=== PATIENT | male | born 1965 | race Caucasian/White ===

== ENCOUNTER 2020-01-25 11:44 | Inpatient (IN) | payer OTHER, MEDICAID, SELFPAY ==
[2020-01-25] VITALS (12 sets, daily range): BP systolic 128–165; BP diastolic 66–99; PULSE 98–106; RESP 10–40; TEMP 36.2–37.1; O2SAT 87–99; BMI 24.1
--- NOTE | 2020-01-25 11:52 | ED_ITS ---
HPI - General Adult General Chief complaint: Toxicology Problem Stated complaint: Ruby Miguel OD Time Seen by Provider: 01/25/20 11:44 Source: EMS Mode of arrival: EMS Limitations: altered mental status History of Present Illness HPI narrative: 54-year-old male initially was a call out for EMS for CPR in progress for a male that was unresponsive. The report was that the patient was staying at 1 of the local hotels. Was found by 1 of the hotel worker's being on the ground. Police arrived 1st. Found him to not be breathing. I gave 4 mg of intranasal Narcan and apparently a very short course of CPR was initiated. EMS arrived. The patient was breathing shallow and somewhat blue in color however this did seem to be an improvement from when the police arrived. He received 1 additional mg intramuscular by EMS and a 2nd 1 mg dose of Narcan IV by EMS. Patient arrived breathing on his own. Arousable. He denied any medications. He did not know where he was. He did not know the year. He stated that he did take heroin and cocaine. Unsure when these ingestions occurred. There also reports that the patient had notes next to him that said ?DNR? and other comments about the fact that he ?did this ?willingly and also left a name and phone number for individuals to call. Related Data Home Medications Medication Instructions Recorded Confirmed No Known Home Medications 01/25/20 01/25/20 Allergies Allergy/AdvReac Type Severity Reaction Status Date / Time No Known Drug Allergies Allergy Verified 01/25/20 12:04 Review of Systems Review of Systems ROS Unobtainable: Unobtainable due to medical condition Patient History Medical History Patient denies medical problems (Acute) Social History lives independently: Yes Exam Initial Vital Signs Initial Vital Signs: Vital Signs Temperature 98.1 F 01/25/20 11:44 Pulse Rate 103 H 01/25/20 11:44 Respiratory Rate 16 01/25/20 11:44 Blood Pressure 157/99 H 01/25/20 11:44 Pulse Oximetry 87 L 01/25/20 11:44 Const General: disheveled Limitations: altered mental status HENMT Head: normal to inspection and normocephalic Mouth: oral mucosae normal Eyes Pupils: pupil size bilaterally 2 Resp Effort & Inspection: not labored, no retractions and other (Breathing shallow) Auscultation: clear to auscultation bilaterally Cardio Rate: tachycardic Rhythm: regular rhythm Pulses: radial pulses present GI Inspection: non-distended Palpation: soft Skin Lesions: no lesions Rashes: no rashes Neuro General: moves all extremities Extrem General: capillary refill normal Psych Appearance: disheveled Scores GCS [place] coma scale eye opening: To sound [place] coma scale verbal response: Confused [place] coma scale motor response: Obey commands Elizabeth coma scale total score: 13 Course Orders Ordered: ED Orders 01/25/20 11:47 Urine Drug Screen, Rapid Stat 01/25/20 12:05 Acetaminophen Stat Complete Blood Count AUTO DIFF Stat Comprehensive Metabolic Panel Stat Ethanol (ETOH) Stat Lactate (Lactic Acid) Stat Lipase Stat Magnesium Stat Partial Thromboplastin Time Stat Phosphorous Stat Prothrombin Time INR Stat Salicylate Stat Naloxone HCl 2 mg/ Sodium (Chloride) 500 mls @ 62.5 mls/hr IV TITRATE WES; Protocol Last Titration: 01/25/20 12:09 Dose: 2 mg/hr, 500 mls/hr Documented by: Admin: 01/25/20 12:05 Dose: 0.25 mg/hr, 62.5 mls/hr Documented by: SANDRA Sodium Chloride (Normal Saline 0.9%) 1,000 mls @ 125 mls/hr IV CONT WES Last Admin: 01/25/20 12:05 Dose: 125 mls/hr Documented by: SANDRA Vital Signs Vital signs: Vital Signs - 8 hr 01/25/20 11:44 01/25/20 11:45 01/25/20 12:05 Temperature 98.1 F Pulse Rate 103 H 106 H 104 H Respiratory Rate 16 20 40 H Blood Pressure 157/99 H Blood Pressure [Right Arm] 156/93 H 148/77 H Pulse Oximetry 87 L 90 L 95 01/25/20 12:55 01/25/20 13:00 Temperature Pulse Rate 99 H Respiratory Rate 11 L Blood Pressure Blood Pressure [Right Arm] 128/66 Pulse Oximetry 99 96 Medical Decision Making Lab Data Lab results reviewed: Yes I reviewed the patient's lab results. Result diagrams: 01/25/20 12:05 01/25/20 12:05 Labs: Lab Results 01/25/20 01/25/20 01/25/20 Range/Units 12:05 12:05 12:05 WBC 11.8 H (4.5-11.0) X10^3/uL RBC 4.78 (4.5-5.9) X10^6/uL Hgb 15.5 (13.5-17.5) g/dL Hct 45.6 (41-53) % MCV 95.3 (80-100) fL MCH 32.5 (26-34) PG MCHC 34.1 (30-36) % RDW 12.3 (11.6-14.8) % Plt Count 254 (150-400) X10^3/uL Neut % (Auto) 85.6 H (50-75) % Lymph % (Auto) 6.5 L (25-40) % [place] % (Auto) 7.2 (3-14) % Eos % (Auto) 0.5 L (2-4) % Baso % (Auto) 0.2 (0-2) % Neut # (Auto) 07537 H (0285-4689) /uL Lymph # (Auto) 800 L (5430-2134) /uL [place] # (Auto) 800 (0-900) /uL Eos # (Auto) 100 (0-450) /uL Baso # (Auto) 0 (0-100) /uL PT (10.1-12.7) SECONDS INR (0.9-1.3) APTT (26.4-36.2) SECONDS Sodium 136 L (137-145) mmol/L Potassium 3.7 (3.4-5.1) mmol/L Chloride 98 (98-107) mmol/L Carbon Dioxide 25 (22-32) mmol/L BUN 8 L (9-20) mg/dL Creatinine 1.11 (0.66-1.25) mg/dL Estimated GFR > 60.0 (>60) mL/min BUN/Creatinine Ratio 7.2 (6-22) Glucose 239 H (70-100) mg/dL Lactate (0.7-2.1) mmol/L Calcium 9.5 (8.4-10.2) mg/dL Phosphorus (2.5-4.5) mg/dL Magnesium (1.6-2.3) mg/dL Total Bilirubin 0.6 (0.2-1.3) mg/dL AST 72 H (17-59) IU/L ALT 42 (<50) IU/L Alkaline Phosphatase 123 (38-126) U/L Total Protein 8.2 (6.3-8.2) g/dL Albumin 4.4 (3.5-5.0) g/dL Globulin 3.8 (1.7-4.1) g/dL Albumin/Globulin Ratio 1.2 (1.0-2.8) Lipase 185 (23-300) U/L Salicylates 1.0 (<20) mg/dL Acetaminophen < 10 L (10-30) ug/mL Ethyl Alcohol < 10 ( - 10) mg/dL 01/25/20 01/25/20 01/25/20 Range/Units 12:05 12:05 12:05 WBC (4.5-11.0) X10^3/uL RBC (4.5-5.9) X10^6/uL Hgb (13.5-17.5) g/dL Hct (41-53) % MCV (80-100) fL MCH (26-34) PG MCHC (30-36) % RDW (11.6-14.8) % Plt Count (150-400) X10^3/uL Neut % (Auto) (50-75) % Lymph % (Auto) (25-40) % [place] % (Auto) (3-14) % Eos % (Auto) (2-4) % Baso % (Auto) (0-2) % Neut # (Auto) (6978-6165) /uL Lymph # (Auto) (7074-6541) /uL [place] # (Auto) (0-900) /uL Eos # (Auto) (0-450) /uL Baso # (Auto) (0-100) /uL PT 12.7 (10.1-12.7) SECONDS INR 1.1 (0.9-1.3) APTT 23 L (26.4-36.2) SECONDS Sodium (137-145) mmol/L Potassium (3.4-5.1) mmol/L Chloride (98-107) mmol/L Carbon Dioxide (22-32) mmol/L BUN (9-20) mg/dL Creatinine (0.66-1.25) mg/dL Estimated GFR (>60) mL/min BUN/Creatinine Ratio (6-22) Glucose (70-100) mg/dL Lactate 3.5 H (0.7-2.1) mmol/L Calcium (8.4-10.2) mg/dL Phosphorus 6.1 H (2.5-4.5) mg/dL Magnesium 2.0 (1.6-2.3) mg/dL Total Bilirubin (0.2-1.3) mg/dL AST (17-59) IU/L ALT (<50) IU/L Alkaline Phosphatase (38-126) U/L Total Protein (6.3-8.2) g/dL Albumin (3.5-5.0) g/dL Globulin (1.7-4.1) g/dL Albumin/Globulin Ratio (1.0-2.8) Lipase (23-300) U/L Salicylates (<20) mg/dL Acetaminophen (10-30) ug/mL Ethyl Alcohol ( - 10) mg/dL ECG Data Attestation: I personally reviewed and interpreted this ECG as follows: Prior ECG tracings: not available for review Interpretation: Sinus tachycardia Ventricular rate of 105 Normal axis Normal QRS QTC [address] T wave changes MDM Narrative Medical decision making narrative: No signs of trauma. Patient received a total 6 mg of Narcan prior to arrival. Shortly after arrival he became somnolent and did desat to the high 80s. He was placed on oxygen. He was arousable. Was started on a 2 milligram/hour Narcan drip. His QTC was prolonged to greater than 550. I do not have an old EKG to compare to. His magnesium was normal. Al cohol Tylenol aspirin all unremarkable. Discussed the case with poison Control who recommended continue with the Narcan drip. Protecting his airway. Treating with benzos if needed for the cocaine. Discussed the case with Dr. Robbins Internal Medicine who will admit for further evaluation and treatment. Discharge Plan Departure Patient Disposition: Admitted As Inpatient Clinical Impression: Heroin overdose Qualifiers: Encounter type: initial encounter Injury intent: undetermined intent Qualified Code(s): T40.1X4A - Poisoning by heroin, undetermined, initial encounter Cocaine overdose Qualifiers: Encounter type: initial encounter Injury intent: undetermined intent Qualified Code(s): T40.5X4A - Poisoning by cocaine, undetermined, initial encounter Admit Date/Time: 01/25/20 13:20 Admit Provider: Babita Robbins
[2020-01-25] MEDS: NALOXONE 2 MG in SODIUM CHLORIDE 0.9% 500 ML 62.5 ML IV (12:05)
[2020-01-25] MEDS: SODIUM CHLORIDE 0.9% 1,000 ML 125 ML IV (12:05)
[2020-01-25 12:22] LABS: INR 1.1 (0.9-1.3); Prothrombin Time 12.7 SECONDS (10.1-12.7)
[2020-01-25 12:25] LABS: PTT Partial Thromboplastin Tim 23 SECONDS (26.4-36.2)
--- NOTE | 2020-01-25 12:26 | PC.NURSE ---
PT currently requiring critical care monitoring. Unable to remove objects not in use. Pt w/ 1:1 observation.
[2020-01-25 12:32] LABS: Add Manual Diff / Slide Review NO; Basophils Absolute Auto 0 /uL (0-100); Basophils Percent Auto 0.2 % (0-2); Eosinophils Absolute Auto 100 /uL (0-450); Eosinophils Percent Auto 0.5 % (2-4); Hematocrit 45.6 % (41-53); Hemoglobin 15.5 g/dL (13.5-17.5); Lymphocytes Absolute Auto 800 /uL (1100-4500); Lymphocytes Percent Auto 6.5 % (25-40); Mean Corpuscular HGB Conc 34.1 % (30-36); Mean Corpuscular Hemoglobin 32.5 PG (26-34); Mean Corpuscular Volume 95.3 fL (80-100); Monocytes Absolute Auto 800 /uL (0-900); Monocytes Percent Auto 7.2 % (3-14); Neutrophils Absolute Auto 10100 /uL (1500-7000); Neutrophils Percent Auto 85.6 % (50-75); Platelet Count 254 X10^3/uL (150-400); Red Blood Cell Count 4.78 X10^6/uL (4.5-5.9); Red Cell Distribution Width 12.3 % (11.6-14.8); White Blood Cell Count 11.8 X10^3/uL (4.5-11.0)
[2020-01-25 12:33] LABS: Acetaminophen < 10 ug/mL (10-30); Alanine Aminotransferase 42 IU/L (<50); Albumin 4.4 g/dL (3.5-5.0); Albumin Globulin Ratio 1.2 (1.0-2.8); Alkaline Phosphatase 123 U/L (38-126); Aspartate Aminotransferase 72 IU/L (17-59); BUN Creatinine Ratio 7.2 (6-22); Bilirubin Total 0.6 mg/dL (0.2-1.3); Blood Urea Nitrogen 8 mg/dL (9-20); Calcium 9.5 mg/dL (8.4-10.2); Carbon Dioxide 25 mmol/L (22-32); Chloride 98 mmol/L (98-107); Estimated Glomerular Filt Rate > 60.0 mL/min (>60); Ethanol (ETOH) < 10 mg/dL; Globulin 3.8 g/dL (1.7-4.1); Glucose 239 mg/dL (70-100); HEMOLYSIS 25 (0-50); Lipase 185 U/L (23-300); Phosphorous 6.1 mg/dL (2.5-4.5); Potassium 3.7 mmol/L (3.4-5.1); Sodium 136 mmol/L (137-145); Total Protein 8.2 g/dL (6.3-8.2)
[2020-01-25 12:34] LABS: Lactate (Lactic Acid) 3.5 mmol/L (0.7-2.1)
[2020-01-25 14:17] LABS: Reflexed Lactate in 2 Hours Y
[2020-01-25] MEDS: SODIUM CHLORIDE 0.9% IV (14:34)
[2020-01-25] MEDS: NALOXONE IV (14:34)
[2020-01-25 14:55] LABS: Lactate 2HR (Lactic Acid Rflx) 1.4 mmol/L (0.7-2.1)
--- NOTE | 2020-01-25 15:37 | PC.NURSE ---
Admit Note Pt arrived via stretcher from ER at 1440. Moved self across from stretcher to bed. Drowsy but easily arousable, oriented x3. Belongings brought up from ER removed from pt's room. ST with prolonged QT. SpO2 96% on RA. End tidal CO2 placecd and reading 37. Oriented to room and to call light/bed/tv controls. Call light within reach. One to one observation in place.
[2020-01-25 16:57] LABS: Ur Creatinine Normal (Normal); Ur Specific Gravity Normal (Normal); Urine Tetrahydrocannabinol Negative (Negative); Urine pH Normal (Normal)
[2020-01-25 16:58] LABS: UR Morphine/Opiate cutoff 300 Positive (Negative); Urine Amphetamines Negative (Negative); Urine Barbiturates Negative (Negative); Urine Benzodiazepines Negative (Negative); Urine Cocaine Positive (Negative); Urine MDMA Negative (Negative); Urine Methadone Negative (Negative); Urine Methamphetamines Negative (Negative); Urine Oxycodone Negative (Negative); Urine Phencyclidine Negative (Negative); Urine Tricyclic Antidepressant Negative (Negative)
--- NOTE | 2020-01-25 17:27 | P.HP_ITS ---
History of Present Illness History of Present Illness Date Patient Seen: 01/25/20 Chief complaint: Ruby Miguel OD Narrative: Antony Davis is a 54-year-old male who does not routinely seek medical care who has a past medical history significant for untreated hypertension, hyperli pidemia, and prediabetes; polysubstance abuse including cocaine, alcohol, and tobacco who presented to the ED via EMS after being found unresponsive at local hotel after intentional suicide attempt with heroin and cocaine overdose. The patient is resting in bed is mildly somnolent but arousable. He reports he attempted to commit suicide due to ?done playing his game [life]. Per ER physician report, the patient was found down unresponsive at a local hotel by an employee. The patient was found to be not breathing and received Narcan 4 mg intranasal x1 and brief CPR performed by police. Once EMS arrived, the patient was found to have shallow breathing and a pulse and CPR was terminated. He received additional 2 mg of Narcan, 1 mg IV and 1 mg IM. The patient reportedly a note that was found lying next to him that stated he was a ?DNR? and that he did this willingly and a name and phone number of an individual to contact. The patient arrived to the ED breathing on his own, somnolent but arousable. He was started on a Narcan gtt. He reports history of untreated hypertension, hyperlipidemia and prediabetes. He denies any current medications. He reports that he uses cocaine frequently and drinks approximately 18 beers a day. He has no complaints and denies headache, chest pain, shortness of breath, abdominal pain, nausea, vomiting, fever, chills, dysuria, diarrhea constipation. He does endorse chronic ?smoker's cough.? He reports he is not suicidal currently. The patient was admitted inpatient for further treatment of heroin and cocaine overdose. Patient History Medical History (Updated 01/25/20 @ 18:00 by Babita Robbins DO) Alcohol dependence (Acute) Cocaine abuse (Acute) Hyperlipidemia (Acute) Hypertension (Acute) Prediabetes (Acute) Tobacco dependence (Acute) Surgical History (Updated 01/25/20 @ 17:29 by Babita Robbins DO) No pertinent past surgical history (Acute) Family & Social History Family History (Updated 01/25/20 @ 17:33 by Babita Robbins DO) Mother Alcoholic cirrhosis of liver Father Osteoarthritis Dementia Sister Unknown family medical history Social History: Prior Living Arrangements House lives independently Yes Safety & Behavioral: Feels Safe in Current Unwilling to Answer Environment Been Physically Hurt or Unwilling to Answer Threatened By a Person Suicide Plan Description No Plan Tobacco & Substance use: Tobacco type cigarettes Smoking Status Current every day smoker Smoking packs per day 1 alcohol intake current alcohol intake frequency 3 or more drinks per day Substance Use Type crack/cocaine,heroin,opiates Meds Home Medications and Allergies Home Medications Medication Instructions Recorded Confirmed Type No Known Home Medications 01/25/20 01/25/20 History Allergies Allergy/AdvReac Type Severity Reaction Status Date / Time No Known Drug Allergies Allergy Verified 01/25/20 12:04 Review of Systems Review of Systems Narrative: A 10 system comprehensive review of systems was conducted with the patient and found to be negative except as above in the History of Present Illness. Exam Vital Signs (past 8 hours): - 01/25/20 11:44 01/25/20 11:45 01/25/20 12:05 Temperature 98.1 F Pulse Rate 103 H 106 H 104 H Respiratory Rate 16 20 40 H Blood Pressure 157/99 H Blood Pressure [Right Arm] 156/93 H 148/77 H Pulse Oximetry 87 L 90 L 95 01/25/20 12:55 01/25/20 13:00 01/25/20 13:58 Temperature Pulse Rate 99 H 104 H Respiratory Rate 11 L 12 Blood Pressure Blood Pressure [Right Arm] 128/66 163/84 H Pulse Oximetry 99 96 96 01/25/20 14:45 01/25/20 15:43 Temperature 98.8 F 98.0 F Pulse Rate 101 H 98 H Respiratory Rate 13 15 Blood Pressure 143/79 H 141/83 H Blood Pressure [Right Arm] Pulse Oximetry 96 99 Oxygen Delivery Method Room Air Oxygen Flow Rate 1 Narrative Exam Narrative: General: Middle-aged gentleman lying in bed, somnolent but arousable, in no acute distress, slightly irritable. HEENT: Normocephalic, atraumatic. External ears without defect. Pupils equal, round, and reactive to light. Anicteric sclerae, moist conjunctivae, and no lid lag. Oropharynx free of erythema and cobble stoning with moist mucosa. Neck: Supple with full range of motion. No jugular venous distension. No lymphadenopathy or thyromegaly. Cardiovascular: Regular rhythm, mild tachycardia, without murmurs, rubs, or ga llops appreciated. Pulmonary: Clear to auscultation bilaterally without crackles, wheezes, or rhonchi. Normal respiratory effort with no use of accessory muscles. Abdomen: Soft, bowel sounds present, nontender, nondistended. No hepatosplenomegaly or masses appreciated. Extremities: No clubbing, cyanosis, or edema. Skin: Chronic maculopapular rash on forehead. Normal temperature, turgor, and texture; no other rash, ulcers, or subcutaneous nodules appreciated. Neurological: Cranial nerves grossly intact. Psychiatric: Irritable mood and affect. Alert and oriented to person, place, and time. Objective Labs Result Diagrams: 01/25/20 12:05 01/25/20 12:05 Labs: Laboratory Results - last 24 hr 01/25/20 01/25/20 01/25/20 12:05 12:05 12:05 WBC 11.8 H RBC 4.78 Hgb 15.5 Hct 45.6 MCV 95.3 MCH 32.5 MCHC 34.1 RDW 12.3 Plt Count 254 Neut % (Auto) 85.6 H Lymph % (Auto) 6.5 L [place] % (Auto) 7.2 Eos % (Auto) 0.5 L Baso % (Auto) 0.2 Neut # (Auto) 75694 H Lymph # (Auto) 800 L [place] # (Auto) 800 Eos # (Auto) 100 Baso # (Auto) 0 PT INR APTT Sodium 136 L Potassium 3.7 Chloride 98 Carbon Dioxide 25 BUN 8 L Creatinine 1.11 Estimated GFR > 60.0 BUN/Creatinine Ratio 7.2 Glucose 239 H Lactate Calcium 9.5 Phosphorus Magnesium Total Bilirubin 0.6 AST 72 H ALT 42 Alkaline Phosphatase 123 Total Protein 8.2 Albumin 4.4 Globulin 3.8 Albumin/Globulin Ratio 1.2 Lipase 185 Nasal Screen MRSA (PCR) Salicylates 1.0 U Opiates 300ng/mL cut Ur Oxycodone Screen Urine Methadone Screen Acetaminophen < 10 L Ur Barbiturates Screen U Tricyclic Antidepress Ur Phencyclidine Scrn Ur Amphetamines Screen U Methamphetamines Scrn Ur MDMA Scrn (Ecstasy) U Benzodiazepines Scrn Urine Cocaine Screen U Marijuana (THC) Screen Ethyl Alcohol < 10 01/25/20 01/25/20 01/25/20 12:05 12:05 12:05 WBC RBC Hgb Hct MCV MCH MCHC RDW Plt Count Neut % (Auto) Lymph % (Auto) [place] % (Auto) Eos % (Auto) Baso % (Auto) Neut # (Auto) Lymph # (Auto) [place] # (Auto) Eos # (Auto) Baso # (Auto) PT 12.7 INR 1.1 APTT 23 L Sodium Potassium Chloride Carbon Dioxide BUN Creatinine Estimated GFR BUN/Creatinine Ratio Glucose Lactate 3.5 H Calcium Phosphorus 6.1 H Magnesium 2.0 Total Bilirubin AST ALT Alkaline Phosphatase Total Protein Albumin Globulin Albumin/Globulin Ratio Lipase Nasal Screen MRSA (PCR) Salicylates U Opiates 300ng/mL cut Ur Oxycodone Screen Urine Methadone Screen Acetaminophen Ur Barbiturates Screen U Tricyclic Antidepress Ur Phencyclidine Scrn Ur Amphetamines Screen U Methamphetamines Scrn Ur MDMA Scrn (Ecstasy) U Benzodiazepines Scrn Urine Cocaine Screen U Marijuana (THC) Screen Ethyl Alcohol 01/25/20 01/25/20 01/25/20 14:37 14:44 16:49 WBC RBC Hgb Hct MCV MCH MCHC RDW Plt Count Neut % (Auto) Lymph % (Auto) [place] % (Auto) Eos % (Auto) Baso % (Auto) Neut # (Auto) Lymph # (Auto) [place] # (Auto) Eos # (Auto) Baso # (Auto) PT INR APTT Sodium Potassium Chloride Carbon Dioxide BUN Creatinine Estimated GFR BUN/Creatinine Ratio Glucose Lactate 1.4 Calcium Phosphorus Magnesium Total Bilirubin AST ALT Alkaline Phosphatase Total Protein Albumin Globulin Albumin/Globulin Ratio Lipase Nasal Screen MRSA (PCR) Negative for mrsa Salicylates U Opiates 300ng/mL cut Positive H Ur Oxycodone Screen Negative Urine Methadone Screen Negative Acetaminophen Ur Barbiturates Screen Negative U Tricyclic Antidepress Negative Ur Phencyclidine Scrn Negative Ur Amphetamines Screen Negative U Methamphetamines Scrn Negative Ur MDMA Scrn (Ecstasy) Negative U Benzodiazepines Scrn Negative Urine Cocaine Screen Positive H U Marijuana (THC) Screen Negative Ethyl Alcohol Assessment & Plan Assessment & Plan narrative: Antony Davis is a 54-year-old male who does not routinely seek medical care who has a past medical history significant for untreated hypertension, hyperlipidemia, and prediabetes; polysubstance abuse including cocaine, alcohol, and tobacco who presented to the ED via EMS after being found unresponsive at [facility] after intentional suicide attempt with heroin and cocaine overdose. 1. Intentional suicide attempt with heroin and cocaine overdose, present on admission. Active. -Patient reports suicide attempt with inhaled cocaine which he uses frequently and intranasal heroin which he reports was his first time use. Patient was found unresponsive by [facility] employee and received brief CPR by police and Narcan 6 mg total in the field (intranasal, IM and IV). -Continue to monitor neuro status frequently. -Continue IV fluids with normal saline at 100 mL/hr. -Continue supplemental oxygen as necessary to maintain oxygen saturations 88- 92%. Patient currently off oxygen. -Patient was started on Narcan gtt in ED and is currently at 1 mg/hr and will be slowly titrated off as tolerated. Continue end-tidal CO2 while on Narcan and patient is sedated/somnolent. Poison control was contacted by ED who recommended IV fluids and Narcan gtt. Recommended use of benzodiazepine cautiously and ONLY if needed for cocaine intoxication once narcan gtt discontinued. -Consulted POLICE ACADEMY PROGRAM COORDINATOR, pending. 2. Alcohol dependence, chronic, present on admission. Stable. -Patient does not appear to be in alcohol withdrawal. Patient denies history of alcohol draw, DTs or alcohol withdrawal seizure. Patient reports he consumes approximately 18 beers per day with last drink today. -EtOH level < 10. -Ordered CIWA assessment. Did not routinely order as needed benzodiazepines due to heroin overdose and potential for respiratory suppression and . -Started and continue multivitamin, folic acid 1 mg daily, and thiamine 100 mg daily. 3. Tobacco dependence, chronic, present on admission. Stable. -Ordered nicotine patch as needed for nicotine withdrawal. -Counseled patient extensively on smoking cessation. Patient reports chronic smoker's cough. -Ordered COVID 19 as patient will likely need to have a negative results for behavioral health treatment. 4. History of hypertension, untreated, chronic, present on admission. Stable. -Patient reports history of hypertension but does not take any antihypertensive and does not routinely see a physician. -Ordered labetalol 10 mg IV every 4 hours as needed for SBP > 180 mmHg is stained for 15 minutes and HR > 60 bpm. May need to consider starting antihypertensive the patient continues to be significantly hypertensive throughout hospitalization. 5. History of hyperlipidemia, untreated, chronic, present on admission. Stable. -patient reports history of hyperlipidemia but does not take any medications to treat hyperlipidemia. 6. History of prediabetes. -Hemoglobin A1c normal at 5.6%. Hyperglycemia on admission likely reactive. Code status: Full code DVT prophylaxis: SQ Heparin and SCDs Patient is admitted under inpatient status with expected length of stay greater than 2 midnights due to severity of presenting symptoms, risk of adverse event, and complexity of treatment plan.
[2020-01-25 18:27] LABS: Hemoglobin A1C% w Est Avg Glu 5.6 % (4.0-6.0)
[2020-01-25] MEDS: NICOTINE 21 MG PATCH TOP (18:47)
[2020-01-25] MEDS: HEPARIN 5,000 UNIT/ML VIAL 5000 UNIT SUBCUT (21:14)
[2020-01-25] MEDS: SODIUM CHLORIDE 0.9% 1,000 ML 100 ML IV (21:20)
--- NOTE | 2020-01-25 22:17 | PC.NURSE ---
Pt awake and alert during this shift, talking freely about his suicide attempt and the weeks preceeding. Material Preparation Worker consulted. VS stable, IV narcan titrated to off. ETCO2 35-44, O2Sats stable on 1L nasal O2. CIWA protocol initiated, last score 0. Seizure pads placed on bed and pt instructed to call for assistance before trying to get out of bed. bed alarm on. Cooperative with cares.
[2020-01-26 04:44] VITALS: BP 161/93; PULSE 105; RESP 19; TEMP 37.3; O2SAT 98
[2020-01-26 05:06] LABS: Add Manual Diff / Slide Review NO; Basophils Absolute Auto 0 /uL (0-100); Basophils Percent Auto 0.3 % (0-2); Eosinophils Absolute Auto 0 /uL (0-450); Eosinophils Percent Auto 0.4 % (2-4); Hematocrit 43.1 % (41-53); Hemoglobin 15.1 g/dL (13.5-17.5); Lymphocytes Absolute Auto 1200 /uL (1100-4500); Lymphocytes Percent Auto 13.2 % (25-40); Mean Corpuscular Hemoglobin 32.9 PG (26-34); Mean Corpuscular Volume 94.1 fL (80-100); Monocytes Absolute Auto 1100 /uL (0-900); Monocytes Percent Auto 12.6 % (3-14); Neutrophils Absolute Auto 6400 /uL (1500-7000); Neutrophils Percent Auto 73.5 % (50-75); Platelet Count 199 X10^3/uL (150-400); Red Blood Cell Count 4.59 X10^6/uL (4.5-5.9); Red Cell Distribution Width 12.2 % (11.6-14.8); White Blood Cell Count 8.7 X10^3/uL (4.5-11.0)
[2020-01-26 05:12] LABS: Alanine Aminotransferase 31 IU/L (<50); Albumin 3.7 g/dL (3.5-5.0); Albumin Globulin Ratio 1.1 (1.0-2.8); Alkaline Phosphatase 84 U/L (38-126); Aspartate Aminotransferase 49 IU/L (17-59); BUN Creatinine Ratio 10.7 (6-22); Bilirubin Total 0.5 mg/dL (0.2-1.3); Blood Urea Nitrogen 9 mg/dL (9-20); Calcium 9.1 mg/dL (8.4-10.2); Carbon Dioxide 35 mmol/L (22-32); Chloride 102 mmol/L (98-107); Estimated Glomerular Filt Rate > 60.0 mL/min (>60); Globulin 3.4 g/dL (1.7-4.1); Glucose 123 mg/dL (70-100); HEMOLYSIS < 15 (0-50); Sodium 140 mmol/L (137-145); Total Protein 7.1 g/dL (6.3-8.2)
--- NOTE | 2020-01-26 06:07 | PC.NURSE ---
Pt is in the ICU s/p suicide attempt, pt is AOx4, VSS, no s/s of acute distress. 1:1 sitter at bedside. Pt is SR-ST 90's to 110's. Pt is standby assist to use urinal at bedside. Pt cooperative with treatment. Bed is in the low position, bed alarm is set with sitter at bedside.
[2020-01-26 08:00] VITALS: BP 151/90; PULSE 98; RESP 16; TEMP 37.2; O2SAT 98
[2020-01-26 08:13] VITALS: O2SAT 92
--- NOTE | 2020-01-26 09:15 | CM.DANOTE ---
Addendum entered by Fatuma Wilson R.N. 01/26/20 13:20: Spoke to [facility], who stated that they could potentially accept patient, if he is voluntary. Patient needs updated EKG, which will be obtained. Called back Ramiro DCR, and he mentioned that he feels that patient should be detained, looking at his history. He is requesting an updated EKG, which is pending. R.T. will send it up. [facility] also called back and stated they would need to call patient Addendum entered by Fatuma Wilson R.N. 01/26/20 11:40: Spoke to Dr. Robbins, hospitalist, who stated that patient did initially state that he was voluntary, but continues to change his mind. Went ahead and called [facility], who stated that they have openings, but are requesting clinicals. Faxed them over clinicals, including EKG and lab information, as well as H&P. Also spoke to [facility], and they have beds available. Answered some questions over the phone. They also want EKG, and tox screen information. Faxed them over same information as well. Called [facility], and they are located in [place]. They also have beds available. Faxed over same clinical information. Ramiro Daily, [facility] called. His phone number is: [phone]. Updated him on patient, and let him know that when this lead case manager spoke to patient, he did not want to go to a facility. Gave him an update on situation of patient. He asked this lead case manager to fax over clinical information so he could review. His fax number is: [phone]. He will review information. Gave him Dr. Woods's phone number as well, for he stated that he wanted to discuss case with her. He mentioned that he would use [employer], which is a tele-health communication device to speak to this lead case manager, as well as patient. Will await to hear back from him, as well as facilities of acceptance if patient does consent to go. Original Note: DCP: Case received, EMR reviewed and met with patient. Introduced self and role. Was able to speak to patient and obtain some information regarding his history and situation. DCP assessment completed with information currently available. Patient is a 54 year old male who admitted yesterday afternoon to the care of the hospitalist team. Payer: confirmed: [facility] [employer]. Patient came to the hospital via ambulance secondary to him not breathing. Patient was found unresponsive at a local hotel by an employee. Patient was given Narcan via nasal, and that there was a note next to him stating that he was a DNR, and did this willingly. Patient arrived at ER somnolent but arousable. He was put on a Narcan drip. Patient has history of cocaine use, and drinks approximately 18 beers a day. Patient was also admitted for further treatment of heroin and cocaine overdose. Met with patient in his room. He is medically stable. He is alert and oriented, pleasant. Patient is from [place], [place], and stated that he is up here visiting with his parents. Attempted to discuss situation with patient. Asked him if he was depressed, and what inspired him to do this, but was avoiding the question. Discussed voluntary placement versus going home, due to concerns that patient would attempt suicide again. Patient stated, he does not want to go to any rehab facility, just wants to go home. He could not state that he would not attempt suicide again. Went ahead and put a call out to [facility] for involuntary placement. Gave information regarding patient, and Dr. Robbins also provided some medical history. Let them know that patient is involuntary regarding going to any facilities. Will await call back. P: DCP to await call back from [facility]. Fatuma Wilson RN/Windrower Operator
[2020-01-26] MEDS: DOCUSATE 100 MG CAPSULE PO (09:26)
[2020-01-26] MEDS: FOLIC ACID 1 MG TABLET PO (09:27)
[2020-01-26] MEDS: HEPARIN 5,000 UNIT/ML VIAL 5000 UNIT SUBCUT (09:27)
[2020-01-26] MEDS: NICOTINE 21 MG PATCH TOP (09:28)
[2020-01-26] MEDS: THIAMINE 100 MG TABLET PO (09:28)
[2020-01-26] MEDS: LOSARTAN 50 MG TABLET PO (09:28)
[2020-01-26] MEDS: MULTIVITAMIN 1 TABLET 1 TAB PO (09:28)
[2020-01-26] MEDS: SODIUM CHLORIDE 0.9% 1,000 ML 100 ML IV (09:29)
[2020-01-26 12:11] VITALS: BP 147/83; PULSE 94; RESP 16; TEMP 37.1; O2SAT 92
--- NOTE | 2020-01-26 14:18 | PC.NURSE ---
Day Shift Note Patient drowsy but awakens easily to voice, cooperative with care, oriented x3. SR in the 80-90s, SpO2 90-92% on RA. RR15-18 bpm. Denies pain, denies nausea. CIWA score 2 this shift. Awaiting placement at this time - see care management notes. 1:[address] Call light within reach, using appropriately to make needs known.
--- NOTE | 2020-01-26 14:39 | CM.DPC ---
Addendum entered by Fatuma Wilson R.N. 01/26/20 16:03: Ramiro called back, DEANNA. Stated that he would be here at approximately 1700, and that [facility] is accepting. Asked to set up transport for 1800. Ana Maria will set up. Dr. Robbins just signed BLS form. Nurse will need to call [facility] for nurse to nurse visit. Addendum entered by Fatuma Wilson R.N. 01/26/20 15:32: [facility] stated that they can't accept patient secondary to temp of 99.0. At this point, [facility] may be facility. Awaiting visit from DEANNA Rubio. Original Note: DCP Cont: DEANNA Rubio, went on Zoom. Brought device into patient's room. Patient was cooperative with questions. He confirmed that he attempted suicide. When he was asked if he was depressed, he denied. Stated that it would be ok to contact his , Medina, for any additional questions. Patient could not confirm that he would not try this again. He stated, I failed at even trying this. Patient stated, on his free time, he spends it in a bar. Discussed and confirmed that he drinks approximately 18 beers a day, and had taken some cocaine recently. When he was asked if he had any hallucinations, he stated, only if I'm buzzed. Ramiro mentioned to patient that there is concern about him attempting suicide again, and that placement to a facility would be recommended. Patient stated, I'd rather not, just go home, I have family support. Ramiro was going to contact patient's , Medina, after hanging up with patient. Ramiro called this hospice case manager back and stated that he would be preparing paper work for involuntary placement, and would be serving patient here in the hospital. He plans to bring paper work here. Gave him patient's room number. After serving, plan is for [facility], but will need transportation. P: Ramior is expected to be here to bring in papers. Afterwards, transportation will need to be set up at [facility]. If this hospice case manager is still here, will work on transportation, or will inquire if SUZANNE Segundo, can set up. Sanya was also in the room during telehealth visit with Ramiro. Fatuma Wilson RN/Licensed Insurance Agent
[2020-01-26 16:30] VITALS: BP 135/73; PULSE 81; RESP 16; TEMP 37.2; O2SAT 94
--- NOTE | 2020-01-26 16:43 | P.DS_ITS ---
History of Present Illness History of Present Illness Chief complaint: Lamont, Ruby OD Narrative: Written by myself Dr. Robbins: Antony Davis is a 54-year-old male who does not routinely seek medical care who has a past medical history significant for untreated hypertension, hyperlipidemia, and prediabetes; polysubstance abuse including cocaine, alcohol, and tobacco who presented to the ED via EMS after being found unresponsive at local hotel after intentional suicide attempt with heroin and cocaine overdose. The patient is resting in bed is mildly somnolent but arousable. He reports he attempted to commit suicide due to ?done playing his game [life]. Per ER physician report, the patient was found down unresponsive at a local hotel by an employee. The patient was found to be not breathing and received Narcan 4 mg intranasal x1 and brief CPR performed by police. Once EMS arrived, the patient was found to have shallow breathing and a pulse and CPR was terminated. He received additional 2 mg of Narcan, 1 mg IV and 1 mg IM. The patient reportedly a note that was found lying next to him that stated he was a ?DNR? and that he did this willingly and a name and phone number of an individual to contact. The patient arrived to the ED breathing on his own, somnolent but arousable. He was started on a Narcan gtt. He reports history of untreated hypertension, hyperlipidemia and prediabetes. He denies any current medications. He reports that he uses cocaine frequently and drinks approximately 18 beers a day. He has no complaints and denies headache, chest pain, shortness of breath, abdominal pain, nausea, vomiting, fever, chills, dysuria, diarrhea constipation. He does endorse chronic ?smoker's cough.? He reports he is not suicidal currently. The patient was admitted inpatient for further treatment of heroin and cocaine overdose. Discharge Providers Provider Date of admission: 01/25/20 13:20 Discharge Date: 01/26/20 Consults: 01/25/20 16:29 Consult to Dietitian, Adult Routine Comment: Reason For Exam: high risk for malnutrition 01/25/20 17:39 Consult to OCCUPATIONAL HEALTH TECHNICIAN - Reception Specialist Routine Comment: attempted suicide OCCUPATIONAL HEALTH TECHNICIAN Consult: Behavioral Health Assess 01/25/20 21:41 Consult to Pastoral Services Routine Comment: Pt had failed suicide attempt and expresses remors Discharge provider: Babita Robbins DO Summary Hospital Course Discharge Diagnosis: 1. Intentional suicide attempt with heroin and cocaine overdose, present on admission. Active. 2. Acute QTc prolongation, present on admission. Resolved. 3. Alcohol dependence, chronic, present on admission. Stable. 4. Tobacco dependence, chronic, present on admission. Stable. 5. History of hypertension, untreated, chronic, present on admission. Stable. 6. History of hyperlipidemia, untreated, chronic, present on admission. Stable. 7. History of prediabetes. Hospital Course: Antony Davis is a 54-year-old male who does not routinely seek medical care who has a past medical history significant for untreated hypertension, hyperlipidemia, and prediabetes; polysubstance abuse including cocaine, alcohol, and tobacco who presented to the ED via EMS after being found unresponsive at local hotel after intentional suicide attempt with heroin and cocaine overdose. 1. Intentional suicide attempt with heroin and cocaine overdose, present on admission. Active. -Patient reports suicide attempt with inhaled cocaine which he uses frequently and intranasal heroin which he reports was his first time use. Patient was found unresponsive by hotel employee and received brief CPR by police and Narcan 6 mg total in the field (intranasal, IM and IV). -Continued to monitor neuro status frequently every 2-4 hours. -Continued IV fluids until adequately hydrated then discontinued. -Continue supplemental oxygen as necessary to maintain oxygen saturations 88- 92%. Patient currently off oxygen. -Patient was started on Narcan gtt in ED and slowly titrated off as tolerated. Continued end-tidal CO2 while patient was on Narcan gtt and was sedated/somnolent. Poison control was contacted by ED who recommended IV fluids and Narcan gtt. Recommended use of benzodiazepine cautiously and ONLY if needed for cocaine intoxication once narcan gtt titrated off. -Consulted OCCUPATIONAL HEALTH TECHNICIAN and we appreciate her time and recommendations. Patient was placed on an SINDY by DCR and discharged to [facility]. Patient currently denies suicidal ideation or plan. 2. Acute QTc prolongation, present on admission. Resolved. -Initial EKG demonstrated sinus tachycardia with prolonged QTc interval of 557 ms due to cocaine and heroin overdose. Repeat EKG demonstrated normal sinus rhythm with normal QTc interval of 454 ms. -Avoided QTc prolonging medications. 3. Alcohol dependence, chronic, present on admission. Stable. -Patient does not appear to be in alcohol withdrawal. Patient denies history of alcohol draw, DTs or alcohol withdrawal seizure. Patient reports he consumes approximately 18 beers per day with last drink day of admission. He also report he has never went any period of time without alcohol use. -EtOH level < 10. -Ordered CIWA assessment. CIWA score remained low 0-2 for which the patient only scored points for slight agitation. PRN benzodiazepines were not ordered due to heroin overdose and the potential for respiratory suppression and . The patient did not exhibit any signs of alcohol withdrawal throughout hospitalization. -Started and continued multivitamin, folic acid 1 mg daily, and thiamine 100 mg daily. 4. Tobacco dependence, chronic, present on admission. Stable. -Continued and discharged with nicotine patch as needed for nicotine withdrawal. -Counseled patient extensively on smoking cessation. Patient reports chronic smoker's cough and likely has undiagnosed COPD. -COVID 19 was ordered and sent for placement at [facility] and pending. 5. History of hypertension, untreated, chronic, present on admission. Stable. -Patient reports history of hypertension but does not take any antihypertensive and does not routinely see a physician. -Ordered labetalol 10 mg IV every 4 hours as needed for SBP > 180 mmHg is stained for 15 minutes and HR > 60 bpm. -Started and discharged on Losartan 50 mg daily in which the dose need to be titrated up or an additional antihypertensive added for blood pressure control. 6. History of hyperlipidemia, untreated, chronic, present on admission. Stable. -Patient reports history of hyperlipidemia but does not take any medications to treat hyperlipidemia. 7. History of prediabetes. -Hemoglobin A1c normal at 5.6%. Hyperglycemia on admission was likely reactive and resolved. Exam Vital Signs (past 8 hours): - 01/26/20 12:11 01/26/20 16:30 Temperature 98.7 F 98.9 F Pulse Rate 94 H 81 Respiratory Rate 16 16 Blood Pressure 147/83 H 135/73 Pulse Oximetry 92 94 Oxygen Delivery Method Room Air Oxygen Flow Rate 0 Narrative Exam Narrative: General: Middle-aged gentleman lying in bed comfortably and in no acute distress, slightly irritable otherwise appropriately interactive. HEENT: Normocephalic, atraumatic. External ears without defect. Pupils equal, round, and reactive to light. Anicteric sclerae, moist conjunctivae, and no lid lag. Oropharynx free of erythema and cobble stoning with moist mucosa. Neck: Supple with full range of motion. No jugular venous distension. No lymphadenopathy or thyromegaly. Cardiovascular: Regular rhythm and rate without murmurs, rubs, or gallops appreciated. Pulmonary: Clear to auscultation bilaterally without crackles, wheezes, or rhonchi. Normal respiratory effort with no use of accessory muscles. Abdomen: Soft, bowel sounds present, nontender, nondistended. No hepatosplenomegaly or masses appreciated. Extremities: No clubbing, cyanosis, or edema. Skin: Chronic maculopapular rash on forehead. Normal temperature, turgor, and texture; no other rash, ulcers, or subcutaneous nodules appreciated. Neurological: Cranial nerves grossly intact. Psychiatric: Irritable mood and affect. Alert and oriented to person, place, and time. Patient perseverates on ways in which he has tried to take his life including alcohol, suicide attempt, etc. He also reports chronic intermittent hallucinations and paranoia but denies current hallucinations, delusions, paranoia, formication eccentric. Objective Labs Result Diagrams: 01/26/20 04:30 01/26/20 04:30 Labs: Laboratory Results - last 24 hr 01/25/20 01/25/20 01/25/20 12:05 12:05 14:44 WBC 11.8 H RBC 4.78 Hgb 15.5 Hct 45.6 MCV 95.3 MCH 32.5 MCHC 34.1 RDW 12.3 Plt Count 254 Neut % (Auto) 85.6 H Lymph % (Auto) 6.5 L [place] % (Auto) 7.2 Eos % (Auto) 0.5 L Baso % (Auto) 0.2 Neut # (Auto) 30990 H Lymph # (Auto) 800 L [place] # (Auto) 800 Eos # (Auto) 100 Baso # (Auto) 0 Sodium Potassium Chloride Carbon Dioxide BUN Creatinine Estimated GFR BUN/Creatinine Ratio Glucose Hemoglobin A1c 5.6 Calcium Magnesium Total Bilirubin AST ALT Alkaline Phosphatase Total Protein Albumin Globulin Albumin/Globulin Ratio Nasal Screen MRSA (PCR) Negative for mrsa U Opiates 300ng/mL cut Ur Oxycodone Screen Urine Methadone Screen Ur Barbiturates Screen U Tricyclic Antidepress Ur Phencyclidine Scrn Ur Amphetamines Screen U Methamphetamines Scrn Ur MDMA Scrn (Ecstasy) U Benzodiazepines Scrn Urine Cocaine Screen U Marijuana (THC) Screen 01/25/20 01/26/20 01/26/20 16:49 04:30 04:30 WBC 8.7 RBC 4.59 Hgb 15.1 Hct 43.1 MCV 94.1 MCH 32.9 MCHC 35.0 RDW 12.2 Plt Count 199 Neut % (Auto) 73.5 Lymph % (Auto) 13.2 L [place] % (Auto) 12.6 Eos % (Auto) 0.4 L Baso % (Auto) 0.3 Neut # (Auto) 6400 Lymph # (Auto) 1200 [place] # (Auto) 1100 H Eos # (Auto) 0 Baso # (Auto) 0 Sodium 140 Potassium 4.0 Chloride 102 Carbon Dioxide 35 H BUN 9 Creatinine 0.84 Estimated GFR > 60.0 BUN/Creatinine Ratio 10.7 Glucose 123 H D Hemoglobin A1c Calcium 9.1 Magnesium 2.0 Total Bilirubin 0.5 AST 49 ALT 31 Alkaline Phosphatase 84 Total Protein 7.1 Albumin 3.7 Globulin 3.4 Albumin/Globulin Ratio 1.1 Nasal Screen MRSA (PCR) U Opiates 300ng/mL cut Positive H Ur Oxycodone Screen Negative Urine Methadone Screen Negative Ur Barbiturates Screen Negative U Tricyclic Antidepress Negative Ur Phencyclidine Scrn Negative Ur Amphetamines Screen Negative U Methamphetamines Scrn Negative Ur MDMA Scrn (Ecstasy) Negative U Benzodiazepines Scrn Negative Urine Cocaine Screen Positive H U Marijuana (THC) Screen Negative Discharge Plan Discharge Plan Patient Disposition: Xfer Psychiatric Hosp Other facility: [facility] Diet/Activity/Treatments Diet: Diet as Tolerated, Low-fat, Low-sodium and Low-cholesterol Activity: Activity as tolerated Visit Report/Discharge Packet Visit Report Forms: Patient Portal/API, Stroke Signs & Symptoms
--- NOTE | 2020-01-26 18:46 | PC.NURSE ---
Addendum entered by Lucia Holcomb R.N. 01/26/20 20:47: 2045- This nurse has attempted x4 to call report. No answer and no ability to leave a message. Will give verbal report to ambulance crew and receiving facility can call me if they need a report. Original Note: 6640- Patient given paperwork from the [facility]. Patient states he is aware of his inability to decline inpatient psychiatric care. Patient verbalizes that he is willing to be treated. Waiting on Covid -19 result before transfer can occur.
[2020-01-26 19:28] LABS: COVID19 Sendout Not Detected (Not Detect)
[2020-01-26 19:56] VITALS: BP 159/85; PULSE 91; RESP 15; TEMP 37.2; O2SAT 94
== END 2020-01-26 21:30 | DRG 816 ==
LOC: ED 13:21 → AC 13:21 → ICU 14:23 → AC 01-26 08:48 → ICU 01-26 08:49
PROVIDERS: Admitting Provider Internal Medicine; Emergency Provider Emergency Medicine; Referring Provider Emergency Medicine; Visit Provider Internal Medicine
DX: T40.5X2A Poisoning by cocaine, intentional self-harm, initial encounter (principal); T40.1X2A Poisoning by heroin, intentional self-harm, initial encounter; F14.10 Cocaine abuse, uncomplicated; R40.2362 Coma scale, best motor response, obeys commands, at arrival to emergency department; R40.2132 Coma scale, eyes open, to sound, at arrival to emergency department; R40.2242 Coma scale, best verbal response, confused conversation, at arrival to emergency department; I45.81 Long QT syndrome; F10.20 Alcohol dependence, uncomplicated; Y90.0 Blood alcohol level of less than 20 mg/100 ml; F17.210 Nicotine dependence, cigarettes, uncomplicated; I10 Essential (primary) hypertension; Z03.818 Encounter for observation for suspected exposure to other biological agents ruled out
CPT/HCPCS: 36415; 80053; 80305; 80320; 80329; 82962; 83036; 83605; 83690; 83735; 84100; 85025; 85610; 85730; 87635; 87797; 93005; 96365; 96366; 99285; G0480; J1644; J2310; J2405